=== PATIENT | male | born 1950 | race African-American/Black ===

== ENCOUNTER 2018-08-20 10:38 | Inpatient (IN) | payer OTHER ==
[2018-08-20] MEDS ORDERED: FUROSEMIDE 40 MG/4 ML INJECTABLE VIAL ONE (11:00)
--- NOTE | 2018-08-20 11:03 | PDOC ---
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 He reports never having had this happen before. Reports taking his medications. Per EMS, patient was also hypertensive in the field to 200s/100s. BP 160s/110s s /p Nitro SL x2. On arrival, patient endorses being short of breath. Denies recent fevers/chills, chest pain, abdominal pain, N/V/C/D, or changes in sensation 08/20/18 11:16 <Matteo Jacobo - Last Filed: 08/20/18 19:03> - General Chief Complaint: Respiratory Stated Complaint: DIFFICULTY BREATHING Time Seen by Provider: 08/20/18 10:44 Past History <TereGaileddie Woods - Last Filed: 08/20/18 11:55> - Past Medical History Cardiac Disorders: Yes (pacemaker) COPD: No CHF: No - Surgical History Cardiac Surgery: Yes (ppm, STENT) - Suicide/Smoking/Psychosocial Hx Smoking History: Never smoked Have you smoked in the past 12 months: No Number of Cigarettes Smoked Daily: 10 Information on smoking cessation initiated: No Hx Alcohol Use: No Drug/Substance Use Hx: No Substance Use Type: None <Matteo Jacobo - Last Filed: 08/20/18 19:03> - Past Medical History Allergies/Adverse Reactions: Allergies Allergy/AdvReac Type Severity Reaction Status Date / Time No Known Allergies Allergy Verified 08/20/18 14:02 Home Medications: Ambulatory Orders Apixaban [Eliquis] 5 mg PO BID 08/20/18 Atorvastatin Calcium 40 mg PO DAILY 08/20/18 Famotidine [Pepcid] 20 mg PO DAILY 08/20/18 Lisinopril 20 mg PO DAILY 08/20/18 Metoprolol Succinate 25 mg PO DAILY 08/20/18 Review of Systems - Review of Systems Able to Perform ROS?: Yes Comments:: GENERAL/CONSTITUTIONAL: No fever or chills. No weakness HEAD, EYES, EARS, NOSE AND THROAT: No change in vision. No ear pain or discharge. No sore throat CARDIOVASCULAR: No chest pain RESPIRATORY: Denies cough, hemoptysis GASTROINTESTINAL: No nausea, vomiting, diarrhea or constipation GENITOURINARY: No dysuria, frequency, or change in urination MUSCULOSKELETAL: No joint or muscle swelling or pain. No neck or back pain SKIN: No rash NEUROLOGIC: No headache, vertigo, loss of consciousness, or change in strength/ sensation ENDOCRINE: No increased thirst. No abnormal weight change HEMATOLOGIC/LYMPHATIC: No anemia, easy bleeding, or history of blood clots ALLERGIC/IMMUNOLOGIC: No hives or skin allergy 08/20/18 11:21 Is the patient limited Albanian proficient: No <Matteo Jacobo - Last Filed: 08/20/18 19:03> *Physical Exam - Vital Signs Last Vital Signs Temp Pulse Resp BP Pulse Ox 115 H 33 H 158/102 H 97 08/20/18 10:38 08/20/18 10:38 08/20/18 10:38 08/20/18 11:03 <Gail Carranza - Last Filed: 08/20/18 11:55> - Vital Signs Last Vital Signs Temp Pulse Resp BP Pulse Ox 115 H 33 H 158/102 H 95 08/20/18 10:38 08/20/18 10:38 08/20/18 10:38 08/20/18 10:38 - Physical Exam Comments: GENERAL: Awake, alert, and fully oriented, in mild distress HEAD: No signs of trauma, normocephalic, atraumatic EYES: PERRLA, EOMI, sclera anicteric, conjunctiva clear ENT: Hearing grossly normal, nares patent, oropharynx clear without exudates. Moist mucosa LUNGS: Diffuse b/l rales, on Bi-Pap, initially increased WOB that improved when placed on Bi-Pap HEART: Regular rate and rhythm, normal S1 and S2, no murmurs appreciated, peripheral pulses normal and equal bilaterally ABDOMEN: Soft, nontender, normoactive bowel sounds. No guarding, no rebound EXTREMITIES : Normal inspection, Normal range of motion, no edema. No clubbing or cyanosis NEUROLOGICAL: Cranial nerves II through XII grossly intact. Normal speech, normal gait, no focal sensorimotor deficits SKIN: Warm, Dry, normal turgor, no rashes or lesions noted 08/20/18 11:36 <Matteo Jacobo - Last Filed: 08/20/18 19:03> Moderate Sedation - Procedure Monitoring Vital Signs: Procedure Monitoring Vital Signs Temperature Pulse Rate 115 H 08/20/18 10:38 Respiratory Rate 33 H 08/20/18 10:38 Blood Pressure 158/102 H 08/20/18 10:38 O2 Sat by Pulse Oximetry (%) 97 08/20/18 11:03 <Gail Carranza - Last Filed: 08/20/18 11:55> - Procedure Monitoring Vital Signs: Procedure Monitoring Vital Signs Temperature Pulse Rate 115 H 08/20/18 10:38 Respiratory Rate 33 H 08/20/18 10:38 Blood Pressure 158/102 H 08/20/18 10:38 O2 Sat by Pulse Oximetry (%) 95 08/20/18 10:38 <Matteo Jacobo - Last Filed: 08/20/18 19:03> Procedures - Bedside Ultrasound Bedside Ultrasound: Lung Remarks: B/l lung U/S significant for b-lines diffuse in all lung mcallister No evidence of consolidation Poor cardiac contractility 08/20/18 11:34 <Matteo Jacobo - Last Filed: 08/20/18 19:03> ED Treatment Course - LABORATORY CBC & Chemistry Diagram: 08/20/18 11:40 08/20/18 15:10 <Matteo Jacobo - Last Filed: 08/20/18 19:03> Medical Decision Making - Medical Decision Making The pt is a 67M w/ a history of CHF, CAD, s/p pacer, HLD, GERD who presents for acute onset shortness of breath while walking to [employer] machine shop outside. DDx: CHF v COPD exacerbation, less likely PNA, PNX, PE, hypertensive urgency CXR w/ significant b/l pulmonary vascular congestion POCUS sig for b/l B-lines and poor cardiac contractility CMP, CBC, BNP, Cardiac enzymes ECG Nitro gtt Bi-Pap 12/6, 60% 08/20/18 11:29 Lasix 40mg IV once 08/20/18 11:52 ABG w/ significant improvement -7.4/40/160 -FiO2 reduced to 40% CMP hemolyzed, labs resent 08/20/18 13:27 Trop I 0.10 BNP 4000 LFTs wnl Lytes wnl Cards consult Dispo: Tele admit <Matteo Jacobo - Last Filed: 08/20/18 19:03> *DC/Admit/Observation/Transfer - Discharge Dispostion Decision to Admit order: Yes Decision to Admit order Date/Time: 08/20/18 11:55 <Gail Carranza - Last Filed: 08/20/18 11:55> <Matteo Jacobo - Last Filed: 08/20/18 19:03> Diagnosis at time of Disposition: Pulmonary edema Qualifiers: Chronicity: acute Qualified Code(s): J81.0 - Acute pulmonary edema Congestive heart failure Qualifiers: Heart failure type: diastolic Heart failure chronicity: acute on chronic Qualified Code(s): I50.33 - Acute on chronic diastolic (congestive) heart failure - Discharge Dispostion Condition at time of disposition: Guarded
[2018-08-20] MEDS ORDERED: NITROPRUSSIDE SODIUM 50,000 MCG in SODIUM CHLORIDE 248 ML IVPB SCH ×2 (11:15→11:49)
--- NOTE | 2018-08-20 11:38 | PDOC ---
Attending Attestation - Resident Resident Name: Mtateo Jacobo - ED Attending Attestation I have performed the following: I have examined & evaluated the patient, The case was reviewed & discussed with the resident, I agree w/resident's findings & plan - HPI HPI: 08/20/18 11:33 67 yo M h/o of CAD, CHF s/p defib/pacemaker and PCI x 5 stents, HTN, HLD, on Eliquis presenting with acute onset of shortness of breath and respiratory distress while walking to his [employer] shop. Unable to lie supine. En route with EMS, placed on Cpap, HYPERTENSIVE >200/100s. EMS administered 2 tabs of nitro sublingual 0.4mg with some relief. 08/20/18 11:55 08/20/18 14:28 - Physicial Exam PE: 08/20/18 11:33 General: in severe respiratory distress, tachypneic, on CPAP - unable to speak full sentences. HEENT: NCAT, PERRL, EOMI, clear conjunctiva, anicteric, moist mucus membranes, clear oropharynx, no oral lesions.. Neck: neck supple, FROM +JVD. Resp: severe respiratory distress, tachypneic, +bilateral coarse rales up from bases to upper lobes. Chest: left ppm palpated. CVS: tachycardic, no murmurs, 2+ peripheral pulses throughout, trace peripheral edema Abdomen: soft, nontender. Back: nontender, normal inspection and ROM MSK: No clubbing or cyanosis. normal bulk and tone. Extremities: no calf tenderness Neuro: alert, mentating Skin: warm and well perfused, cap refill <2 sec, normal color - Critical Care Time Total Critical Care Time: 60 (acute respiratory failure, pulmonary edema.) Critical Care Statement: The care of this patient involved high complexity decision making to prevent further life threatening deterioration of the patient 's condition and/or to evaluate & treat vital organ system(s) failure or risk of failure. - Medical Decision Making 08/20/18 11:33 See HPI for details Vital signs reviewed, +tachy/tachypenic. on BiPAP DDx SOB: ACS, angina, PE, CHF exacerbation, acute pulmonary edema, pleural / pericardial effusion. pleurisy, pneumonia. effusion. anemia, electrolyte/ metabolic derangements. Bedside POCUS echo and thoracic exam with +bilateral B lines in all lung mcallister , severely depressed EF <30% on visual inspection. no pericardial effusion, RV< LV. clinically in fluid overload/new onset CHF (no known prior per patient) - does have underlying CAD. Placed bipap 14/5, FiO2 50% - maintain. Hemodynamics allows for NIPPV. Blanchard for strict I/O - however able to urinate into urinal; unable to advance blanchard despite several RN attempts, will leave alone lasix x1 dose and nitro gtt for htn emergency 2/2 pulmonary edema/CHF. labs and lytes_wnl VBG initially abnormal, but recheck on ABG and normal, no acidosis or Co2/ bicarb derangement. wbc ct mildly elevated 12K, but no fever, no s/s infection, so no abx for now and more likely CHF/APE. EKG normal sinus rhythm, no interval abnormalities, narrow QRS, ST and T wave segments and morphology normal. Nonspecific T wave abnormalities, unchanged from prior with TWI in lateral leads. on clinical reeval, much improved, keeping on bipap for afterload and preload reduction. hold fluids. remains on nitro gtt. ICU cs, can go to tele with drip and bipap management. Admit tele for CHF exac/pulmonary edema.. Discussed results and management plan with pt and family member at bedside, agree with impression and plan 08/23/18 20:37 Heart Score/ECG Review - ECG Impressions Normal ECG: No Comment:: 08/20/18 11:39 EKG normal sinus rhythm, no interval abnormalities, narrow QRS, ST and T wave segments and morphology normal. Nonspecific T wave abnormalities, unchanged from prior with TWI in lateral leads. Procedures - Bedside Ultrasound Bedside Ultrasound: Cardiac Remarks: 08/20/18 11:37 POCUS echo and thoracic exam performed, indication includes dyspnea. views obtained (PSLA, A4, SX, b/l lung mcallister). Findings include severely depressed EF <30% (on visual inspection), no pericardial or pleural effusion, primarily B lines in all lung mcallister and diffusely, RV<LV. 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
[2018-08-20] MEDS ORDERED: FUROSEMIDE 40 MG/4 ML INJECTABLE VIAL IVPUSH ONE (11:52)
[2018-08-20] MEDS ORDERED: NITROGLYCERIN 25MG/D5W 250ML 25 MG/250 ML ML IVPB ONE ×3 (11:55→22:19)
[2018-08-20] MEDS ORDERED: NITROGLYCERIN 50MG/D5W 250ML 50 MG/250 ML ML IVPB SCH (12:00)
[2018-08-20 12:02] LABS: BASO % 0.9 % (0-2.0); EOS % 1.5 % (0-4.5); HEMATOCRIT 45.6 % (35.4-49); HEMOGLOBIN 15.3 GM/dL (11.7-16.9); LYMPH % 16.4 % (8-40); MCH 29.3 pg (25.7-33.7); MCHC 33.4 g/dl (32.0-35.9); MEAN CELL VOLUME 87.7 fl (80-96); MEAN PLT VOLUME 10.7 fl (7.5-11.1); MONO % 6.8 % (3.8-10.2); NEUT % 74.4 % (42.8-82.8); PLATELET COUNT 221 K/MM3 (134-434); RDW 13.5 % (11.9-15.9); VENOUS PO2 25.7 mmHg (28-48); WHITE BLOOD COUNT 12.5 K/mm3 (4.0-10.0)
[2018-08-20 12:04] LABS: VENOUS PC02 64.2 mmHg (38-52); VENOUS PH 7.2 (7.32-7.42)
[2018-08-20] MEDS: NITROGLYCERIN 25MG/D5W 250ML 25 MG/250 ML ML IVPB SCH (12:38)
[2018-08-20 12:41] LABS: ARTERIAL BLD GAS O2 SATURATION 98.8 % (90-98.9); ARTERIAL BLOOD GAS PCO2 40.6 mmHg (35-45)
--- NOTE | 2018-08-20 14:13 | CON.CARD ---
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 He reports medication compliance, but adds salt to diet, denies chest pain, near or true syncope, palpitations. Per EMS, patient was also hypertensive in the field to 200s/100s. BP 160s/110s s/p Nitro SL x2, symptoms responding to IV diuresis and NTG gtt. - History Source History Provided By: Patient Limitations to Obtaining History: No Limitations - Alcohol/Substance Use Hx Alcohol Use: No - Smoking History Smoking history: Never smoked Have you smoked in the past 12 months: No Aproximately how many cigarettes per day: 10 Home Medications - Allergies Allergies/Adverse Reactions: Allergies Allergy/AdvReac Type Severity Reaction Status Date / Time No Known Allergies Allergy Verified 08/20/18 14:02 - Home Medications Home Medications: Ambulatory Orders Cephalexin [Keflex] 500 mg PO TID #21 capsule 04/30/14 Review of Systems - Review of Systems Cardiovascular: reports: Shortness of Breath Respiratory: reports: SOB on Exertion Vital Signs: Vital Signs Temperature Pulse Rate 73 08/20/18 12:25 Respiratory Rate 20 08/20/18 12:25 Blood Pressure 168/108 H 08/20/18 12:25 O2 Sat by Pulse Oximetry (%) 99 08/20/18 14:05 Constitutional: Yes: No Distress, Calm Neck: Yes: Supple Respiratory: Yes: Regular, Diminished, On BiPap Gastrointestinal: Yes: Normal Bowel Sounds, Soft Cardiovascular: Yes: Regular Rate and Rhythm JVD: No Carotid Bruit: No Heart Sounds: Yes: S1, S2 Murmur: Yes: Systolic Murmur, Grade 1 Edema: No - Other Data Labs, Other Data: CBC, BMP 08/20/18 11:40 Troponin, BNP 08/20/18 11:40 Troponin I Cancelled B-Natriuretic Peptide Cancelled Troponin, BNP 08/20/18 11:40 Troponin I Cancelled B-Natriuretic Peptide Cancelled NSR @ 77 LVH, LAE Problem List - Problems (1) Coronary artery disease Code(s): I25.10 - ATHSCL HEART DISEASE OF [place] CORONARY ARTERY W/O ANG PCTRS Qualifiers: Coronary Disease-Associated Artery/Lesion type: [place] artery [place] vs. transplanted heart: [place] heart Associated angina: without angina Qualified Code(s): I25.10 - Atherosclerotic heart disease of [place] coronary artery without angina pectoris (2) S/P coronary artery stent placement Code(s): Z95.5 - PRESENCE OF CORONARY ANGIOPLASTY IMPLANT AND GRAFT (3) Hyperlipidemia Code(s): E78.5 - HYPERLIPIDEMIA, UNSPECIFIED Qualifiers: Hyperlipidemia type: pure hypercholesterolemia Qualified Code(s): E78.00 - Pure hypercholesterolemia, unspecified; E78.0 - Pure hypercholesterolemia (4) Hypertensive heart disease with acute diastolic congestive heart failure Code(s): I11.0 - HYPERTENSIVE HEART DISEASE WITH HEART FAILURE; I50.31 - ACUTE DIASTOLIC (CONGESTIVE) HEART FAILURE (5) Congestive heart failure Code(s): I50.9 - HEART FAILURE, UNSPECIFIED Qualifiers: Heart failure type: diastolic Heart failure chronicity: acute on chronic Qualified Code(s): I50.33 - Acute on chronic diastolic (congestive) heart failure (6) Pulmonary edema Code(s): J81.1 - CHRONIC PULMONARY EDEMA Qualifiers: Chronicity: acute Qualified Code(s): J81.0 - Acute pulmonary edema (7) Pacemaker Code(s): Z95.0 - PRESENCE OF CARDIAC PACEMAKER Assessment/Plan A:1. Acute on chronic diastolic heart failure with dietary indiscretion 2. Hypertensive emergency 3. Paroxysmal afib sss s/p PPM 4. Hyperlipidemia 5. CAD s/p PCI (stent), angina pectoris 6. GERD P:1. IV diuresis with monitor diuretic response, renal function and electrolytes 2. Continue Eliquis 5 bid, Toprol XL 25 qd, lisinopril 20 qd, Lipitor 40 qd, Prilosec 20 qd 3. Bipap and O2 as needed to maintain saO2 4. NTG gtt for now 5. F/u echo to assess ventricular and valve fxn 6. Review old records from [facility] cardiology clinic 7. Thank you for consultative opportunity
[2018-08-20 15:34] LABS: URINE APPEARANCE CLEAR; URINE BILIRUBIN NEGATIVE (<2.0 mg/dL); URINE COLOR STRAW; URINE GLUCOSE (UA) NEGATIVE (NEGATIVE); URINE KETONE NEGATIVE (NEGATIVE); URINE LEUK ESTERASE NEGATIVE (NEGATIVE); URINE NITRITE NEGATIVE (NEGATIVE); URINE PROTEIN 1+ (NEGATIVE); URINE UROBILINOGEN NEGATIVE mg/dL (0.2-1.0)
[2018-08-20 15:50] LABS: URINE HYALINE CAST 4 /lpf; URINE MUCUS RARE
[2018-08-20 15:55] LABS: ALBUMIN 3.3 g/dl (3.4-5.0); ALK PHOS 124 U/L (45-117); ANION GAP 5 MMOL/L (8-16); BILIRUBIN,TOTAL 0.6 mg/dL (0.2-1); BLOOD UREA NITROGEN 17 mg/dL (7-18); CALCIUM 8.9 mg/dL (8.5-10.1); CHLORIDE 102 mmol/L (98-107); CO2 31 mmol/L (21-32); CREATININE 1.2 mg/dL (0.55-1.3); GLUCOSE,RANDOM 151 mg/dL (74-106); SGOT/AST 24 U/L (15-37); SGPT/ALT 33 U/L (13-61); SODIUM 139 mmol/L (136-145)
[2018-08-20] MEDS: FUROSEMIDE 40 MG/4 ML INJECTABLE VIAL IVPUSH SCH (17:17)
--- NOTE | 2018-08-20 17:46 | HP ---
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 He reports medication compliance, but adds salt to diet, denies chest pain, near or true syncope, palpitations. Per EMS, patient was also hypertensive in the field to 200s/100s. BP 160s/110s s/p Nitro SL x2, symptoms responding to IV diuresis and NTG gtt. - Past Medical History Cardiovascular: Yes: HTN, Hyperlipdemia Gastrointestinal: Yes: GERD - Smoking History Smoking history: Never smoked Have you smoked in the past 12 months: No Aproximately how many cigarettes per day: 10 - Alcohol/Substance Use Hx Alcohol Use: No Home Medications - Allergies Allergies/Adverse Reactions: Allergies Allergy/AdvReac Type Severity Reaction Status Date / Time No Known Allergies Allergy Verified 08/20/18 14:02 - Home Medications Home Medications: Ambulatory Orders Apixaban [Eliquis] 5 mg PO BID 08/20/18 Atorvastatin Calcium 40 mg PO DAILY 08/20/18 Famotidine [Pepcid] 20 mg PO DAILY 08/20/18 Lisinopril 20 mg PO DAILY 08/20/18 Metoprolol Succinate 25 mg PO DAILY 08/20/18 Metoprolol Succinate [Toprol XL -] 50 mg PO DAILY #30 tab.sr.24h 08/22/18 Physical Examination Vital Signs: Vital Signs Temperature Pulse Rate 62 08/20/18 16:30 Respiratory Rate 23 H 08/20/18 16:30 Blood Pressure 124/80 08/20/18 16:30 O2 Sat by Pulse Oximetry (%) 95 08/20/18 16:30 Constitutional: Yes: No Distress HENT: Yes: Atraumatic Neck: Yes: Supple Cardiovascular: Yes: Regular Rate and Rhythm Respiratory: Yes: CTA Bilaterally Gastrointestinal: Yes: Normal Bowel Sounds Extremities: Yes: WNL Edema: No Neurological: Yes: Alert, Oriented Labs: CBC, BMP 08/20/18 11:40 08/20/18 15:10 Problem List - Problems (1) Congestive heart failure Assessment/Plan: on iv lasix fu troponins cardiology on board Code(s): I50.9 - HEART FAILURE, UNSPECIFIED Qualifiers: Heart failure type: diastolic Heart failure chronicity: acute on chronic Qualified Code(s): I50.33 - Acute on chronic diastolic (congestive) heart failure (2) Coronary artery disease Code(s): I25.10 - ATHSCL HEART DISEASE OF [place] CORONARY ARTERY W/O ANG PCTRS Qualifiers: Coronary Disease-Associated Artery/Lesion type: [place] artery [place] vs. transplanted heart: [place] heart Associated angina: without angina Qualified Code(s): I25.10 - Atherosclerotic heart disease of [place] coronary artery without angina pectoris (3) Hyperlipidemia Assessment/Plan: on meds Code(s): E78.5 - HYPERLIPIDEMIA, UNSPECIFIED Qualifiers: Hyperlipidemia type: pure hypercholesterolemia Qualified Code(s): E78.00 - Pure hypercholesterolemia, unspecified; E78.0 - Pure hypercholesterolemia (4) Hypertensive heart disease with acute diastolic congestive heart failure Assessment/Plan: on meds Code(s): I11.0 - HYPERTENSIVE HEART DISEASE WITH HEART FAILURE; I50.31 - ACUTE DIASTOLIC (CONGESTIVE) HEART FAILURE (5) Pacemaker Code(s): Z95.0 - PRESENCE OF CARDIAC PACEMAKER (6) S/P coronary artery stent placement Code(s): Z95.5 - PRESENCE OF CORONARY ANGIOPLASTY IMPLANT AND GRAFT Assessment/Plan Laboratory Results - last 24 hr 08/20/18 08/20/18 08/20/18 11:40 11:40 11:40 WBC 12.5 H RBC 5.20 Hgb 15.3 Hct 45.6 MCV 87.7 MCH 29.3 MCHC 33.4 RDW 13.5 Plt Count 221 MPV 10.7 Absolute Neuts (auto) 9.3 H Neutrophils % 74.4 Lymphocytes % 16.4 Monocytes % 6.8 Eosinophils % 1.5 Basophils % 0.9 Nucleated RBC % 0 Anticoagulation Therapy Puncture Site ABG pH ABG pCO2 at Pt Temp ABG pO2 at Pt Temp ABG HCO3 ABG O2 Sat (Measured) ABG O2 Content ABG Base Excess Masood Test VBG pH 7.20 L* POC VBG pCO2 64.2 H* POC VBG pO2 25.7 L Mixed VBG HCO3 24.0 O2 Delivery Device Oxygen Flow Rate Vent Mode Vent Rate Mechanical Rate Pressure Support Vent Sodium Cancelled Potassium Cancelled Chloride Cancelled Carbon Dioxide Cancelled Anion Gap Cancelled BUN Cancelled Creatinine Cancelled Creat Clearance w eGFR Cancelled Random Glucose Cancelled Calcium Cancelled Total Bilirubin Cancelled AST Cancelled ALT Cancelled Alkaline Phosphatase Cancelled Creatine Kinase Cancelled Troponin I Cancelled B-Natriuretic Peptide Cancelled Total Protein Cancelled Albumin Cancelled Urine Color Urine Appearance Urine pH Ur Specific [place] Urine Protein Urine Glucose (UA) Urine Ketones Urine Blood Urine Nitrite Urine Bilirubin Urine Urobilinogen Ur Leukocyte Esterase Urine WBC (Auto) Urine RBC (Auto) Hyaline Casts Urine Mucus 08/20/18 08/20/18 08/20/18 11:41 12:31 13:00 WBC RBC Hgb Hct MCV MCH MCHC RDW Plt Count MPV Absolute Neuts (auto) Neutrophils % Lymphocytes % Monocytes % Eosinophils % Basophils % Nucleated RBC % Anticoagulation Therapy No Result Required. Puncture Site Right radial ABG pH 7.40 ABG pCO2 at Pt Temp 40.6 ABG pO2 at Pt Temp 160.0 H* ABG HCO3 25.9 ABG O2 Sat (Measured) 98.8 ABG O2 Content 21.5 ABG Base Excess No Result Required. Masood Test No Result Required. VBG pH POC VBG pCO2 POC VBG pO2 Mixed VBG HCO3 O2 Delivery Device No Result Required. Oxygen Flow Rate No Vent Mode No Result Required. Vent Rate No Result Required. Mechanical Rate No Result Required. Pressure Support Vent No Result Required. Sodium Cancelled Potassium Cancelled Chloride Cancelled Carbon Dioxide Cancelled Anion Gap Cancelled BUN Cancelled Creatinine Cancelled Creat Clearance w eGFR Cancelled Random Glucose Cancelled Calcium Cancelled Total Bilirubin Cancelled AST Cancelled ALT Cancelled Alkaline Phosphatase Cancelled Creatine Kinase Troponin I Cancelled B-Natriuretic Peptide Cancelled Total Protein Cancelled Albumin Cancelled Urine Color Straw Urine Appearance Clear Urine pH 6.0 Ur Specific [place] 1.006 L Urine Protein 1+ H Urine Glucose (UA) Negative Urine Ketones Negative Urine Blood Negative Urine Nitrite Negative Urine Bilirubin Negative Urine Urobilinogen Negative Ur Leukocyte Esterase Negative Urine WBC (Auto) <1 Urine RBC (Auto) <1 Hyaline Casts 4 Urine Mucus Rare 08/20/18 08/20/18 08/20/18 15:10 15:10 15:10 WBC RBC Hgb Hct MCV MCH MCHC RDW Plt Count MPV Absolute Neuts (auto) Neutrophils % Lymphocytes % Monocytes % Eosinophils % Basophils % Nucleated RBC % Anticoagulation Therapy Puncture Site ABG pH ABG pCO2 at Pt Temp ABG pO2 at Pt Temp ABG HCO3 ABG O2 Sat (Measured) ABG O2 Content ABG Base Excess Masood Test VBG pH POC VBG pCO2 POC VBG pO2 Mixed VBG HCO3 O2 Delivery Device Oxygen Flow Rate Vent Mode Vent Rate Mechanical Rate Pressure Support Vent Sodium 139 Potassium 5.0 Chloride 102 Carbon Dioxide 31 Anion Gap 5 L BUN 17 Creatinine 1.2 Creat Clearance w eGFR > 60 Random Glucose 151 H Calcium 8.9 Total Bilirubin 0.6 AST 24 ALT 33 Alkaline Phosphatase 124 H Creatine Kinase Troponin I 0.10 H B-Natriuretic Peptide 3089.6 H Total Protein 7.0 Albumin 3.3 L Urine Color Urine Appearance Urine pH Ur Specific [place] Urine Protein Urine Glucose (UA) Urine Ketones Urine Blood Urine Nitrite Urine Bilirubin Urine Urobilinogen Ur Leukocyte Esterase Urine WBC (Auto) Urine RBC (Auto) Hyaline Casts Urine Mucus Active Medications Generic Name Dose Route Start Last Admin Trade Name Freq PRN Reason Stop Dose Admin Apixaban 5 mg 08/20/18 22:00 Eliquis - PO BID JAX Atorvastatin Calcium 40 mg 08/20/18 22:00 Lipitor - PO HS JAX Furosemide 40 mg 08/20/18 17:00 08/20/18 17:17 Lasix Injection - IVPUSH 40 mg BID@0600,1400 JAX Administration Nitroglycerin/Dextrose 25 mg in 250 mls @ 60 mls/hr 08/20/18 12:00 08/20/18 12:38 Nitroglycerin 25mg/D5w 250ml IVPB 50 mcg/min TITR JAX 30 mls/hr Administration 100 MCG/MIN Lisinopril 20 mg 08/21/18 10:00 Prinivil PO DAILY JAX Metoprolol Succinate 25 mg 08/21/18 10:00 Toprol Xl - PO DAILY JAX
[2018-08-20] MEDS: APIXABAN 5 MG TABLET PO SCH (22:30)
[2018-08-20] MEDS: ATORVASTATIN CA 40 MG TABLET (FP) PO SCH (22:30)
[2018-08-21] MEDS ORDERED: ATORVASTATIN CA 40 MG TABLET (FP) ONE (00:33)
[2018-08-21] MEDS ORDERED: APIXABAN 5 MG TABLET PO ONE (00:33)
[2018-08-21] MEDS: FUROSEMIDE 40 MG/4 ML INJECTABLE VIAL IVPUSH SCH ×2 (06:15→15:38)
[2018-08-21] MEDS ORDERED: NITROGLYCERIN 25MG/D5W 250ML 25 MG/250 ML ML IVPB ONE ×2 (07:10)
[2018-08-21] MEDS ORDERED: FUROSEMIDE 40 MG/4 ML INJECTABLE VIAL ONE (07:10)
[2018-08-21] MEDS ORDERED: metoPROLOL SUCCINATE 25 MG TAB.SR.24H (FP) PO SCH (10:00)
--- NOTE | 2018-08-21 10:07 | PN ---
Progress Note, Physician Chief Complaint: Events noted Feels better this am History of Present Illness: Patient was seen and examined. Awake and alert. Chart was reviewed Denies chest pain, less SOB and no palpitations - Current Medication List Current Medications: Active Medications Apixaban (Eliquis -) 5 mg PO BID [facility] Last Admin: 08/20/18 22:30 Dose: 5 mg Atorvastatin Calcium (Lipitor -) 40 mg PO HS [facility] Last Admin: 08/20/18 22:30 Dose: 40 mg Furosemide (Lasix Injection -) 40 mg IVPUSH BID@0600,1400 [facility] Last Admin: 08/21/18 06:15 Dose: 40 mg Nitroglycerin/Dextrose (Nitroglycerin 25mg/D5w 250ml) 25 mg in 250 mls @ 60 mls /hr IVPB TITR [facility] Last Admin: 08/20/18 12:38 Dose: 50 mcg/min, 30 mls/hr Lisinopril (Prinivil) 20 mg PO DAILY [facility] Metoprolol Succinate (Toprol Xl -) 25 mg PO DAILY [facility]1983 - Objective Vital Signs: Vital Signs Temperature 98 F 08/21/18 07:23 Pulse Rate 63 08/21/18 07:23 Respiratory Rate 15 08/21/18 07:23 Blood Pressure 133/74 08/21/18 07:23 O2 Sat by Pulse Oximetry (%) 100 08/21/18 07:23 Eyes: Yes: PERRL HENT: Yes: Atraumatic Neck: Yes: Supple Cardiovascular: Yes: Regular Rate and Rhythm, Murmur (Soft SM), S1, S2 Respiratory: Yes: Diminished Gastrointestinal: Yes: Normal Bowel Sounds, Soft. No: Tenderness Edema: No Additional Findings/Remarks: - Review of Systems Constitutional: denies: Chills, Fever Cardiovascular: denies: Chest Pain. denies: Palpitations, (+) Shortness of Breath Respiratory: denies: Cough. denies: Hemoptysis, Orthopnea, PND, (+) SOB, SOB on Exertion Gastrointestinal: denies: Abdominal Pain, Constipation, Diarrhea, Melena, Nausea , Rectal Bleeding, Vomiting Neurological: denies: Dizziness, Headache, Seizure, Syncope Labs: CBC, BMP 08/20/18 11:40 08/20/18 15:10 Problem List - Problems (1) Cardiac defibrillator in place Code(s): Z95.810 - PRESENCE OF AUTOMATIC (IMPLANTABLE) CARDIAC DEFIBRILLATOR (2) Congestive heart failure Code(s): I50.9 - HEART FAILURE, UNSPECIFIED Qualifiers: Heart failure type: diastolic Heart failure chronicity: acute on chronic Qualified Code(s): I50.33 - Acute on chronic diastolic (congestive) heart failure (3) Coronary artery disease Code(s): I25.10 - ATHSCL HEART DISEASE OF [place] CORONARY ARTERY W/O ANG PCTRS Qualifiers: Coronary Disease-Associated Artery/Lesion type: [place] artery [place] vs. transplanted heart: [place] heart Associated angina: without angina Qualified Code(s): I25.10 - Atherosclerotic heart disease of [place] coronary artery without angina pectoris (4) Hypertensive heart disease with acute diastolic congestive heart failure Code(s): I11.0 - HYPERTENSIVE HEART DISEASE WITH HEART FAILURE; I50.31 - ACUTE DIASTOLIC (CONGESTIVE) HEART FAILURE (5) S/P coronary artery stent placement Code(s): Z95.5 - PRESENCE OF CORONARY ANGIOPLASTY IMPLANT AND GRAFT (6) Hyperlipidemia Code(s): E78.5 - HYPERLIPIDEMIA, UNSPECIFIED Qualifiers: Hyperlipidemia type: pure hypercholesterolemia Qualified Code(s): E78.00 - Pure hypercholesterolemia, unspecified; E78.0 - Pure hypercholesterolemia Assessment/Plan 1. Acute on chronic systolic and diastolic heart failure with dietary indiscretion 2. Hypertension/HCVD 3. Paroxysmal AF 4. Implantable defibrillator ([employer]) with history of HFrEF 4. Hyperlipidemia 5. CAD s/p PCI (stent), angina pectoris, demand ischemia 6. GERD PLAN: 1. IV diuresis with monitoring renal function and electrolytes 2. Continue Eliquis 5 mg BID, Toprol XL 25 mg QD, Lisinopril 20 mg QD and Lipitor 40 mg QHS 3. Bipap and O2 as needed to maintain saO2 4. Taper NTG gtt 5. Echocardiography to assess LV/RV and valvular function. Depending on result, consider further optimization of cardiac therapy. Other consideration is use of Entresto 6. Review old records from [facility] cardiology clinic Further plans are to follow Fly Bennett MD
[2018-08-21] MEDS: LISINOPRIL 20 MG TABLET (FP) PO SCH (10:43)
[2018-08-21] MEDS: APIXABAN 5 MG TABLET PO SCH ×2 (10:43→22:08)
--- NOTE | 2018-08-21 13:19 | CON.PULM ---
Consult Consult Specialty:: PULMONARY Referred by:: Dr. Rodriguez Reason for Consultation:: shortness of breath - History of Present Illness Chief Complaint: shortness of breath History of Present Illness: 67yo male with h/o HTN, hyperlipidemia, LV systolic dysfunction, paroxysmal atrial fibrillation s/p PPM, GERD who was admitted with worsening shortness of breath. Denies chest pain or palpitations. No cough or wheezing. Denies fevers, chills or sweats. Found to be hypertensive with BP >200/100, started on nitro gtt BP control and lasix with improvement in symptoms. Denies any pulmonary history, is a remote smoker. Worked in an [employer]. - History Source History Provided By: Patient, Medical Record Limitations to Obtaining History: No Limitations - Past Medical History Cardio/Vascular: Yes: HTN, Hyperlipdemia Gastrointestinal: Yes: GERD - Alcohol/Substance Use Hx Alcohol Use: No - Smoking History Smoking history: Never smoked Have you smoked in the past 12 months: No Aproximately how many cigarettes per day: 10 Home Medications - Allergies Allergies/Adverse Reactions: Allergies Allergy/AdvReac Type Severity Reaction Status Date / Time No Known Allergies Allergy Verified 08/20/18 14:02 - Home Medications Home Medications: Ambulatory Orders Apixaban [Eliquis] 5 mg PO BID 08/20/18 Atorvastatin Calcium 40 mg PO DAILY 08/20/18 Famotidine [Pepcid] 20 mg PO DAILY 08/20/18 Lisinopril 20 mg PO DAILY 08/20/18 Metoprolol Succinate 25 mg PO DAILY 08/20/18 Review of Systems - Review of Systems Constitutional: reports: Weakness. denies: Chills, Fever Eyes: denies: Recent Change in Vision HENT: denies: Nasal Congestion, Throat Pain Neck: denies: Stiffness, Tenderness Cardiovascular: reports: Shortness of Breath. denies: Chest Pain, Edema, Palpitations Respiratory: denies: Cough, Hemoptysis, Wheezing Gastrointestinal: denies: Abdominal Pain, Nausea, Vomiting Genitourinary: denies: Dysuria, Hematuria Neurological: denies: Dizziness, Headache Endocrine: denies: Unexplained Weight Loss Physical Exam Vital Sings: Vital Signs Temperature 98.2 F 08/21/18 10:30 Pulse Rate 73 08/21/18 11:46 Respiratory Rate 15 08/21/18 11:46 Blood Pressure 121/63 08/21/18 11:46 O2 Sat by Pulse Oximetry (%) 99 08/21/18 12:12 Constitutional: Yes: Calm Eyes: Yes: Conjunctiva Clear, EOM Intact HENT: Yes: Atraumatic, Normocephalic Neck: Yes: Supple, Trachea Midline Cardiovascular: Yes: Regular Rate and Rhythm Respiratory: Yes: Rales (bibasilar) ...Clubbing: No Gastrointestinal: Yes: Normal Bowel Sounds, Soft. No: Tenderness Edema: No Neurological: Yes: Alert, Oriented Labs: CBC, BMP 08/20/18 11:40 08/20/18 15:10 ABG Results ABG pH 7.40 (7.35-7.45) 08/20/18 12:31 ABG pCO2 at Pt Temp 40.6 mmHg (35-45) 08/20/18 12:31 ABG pO2 at Pt Temp 160.0 mmHg (80-100) H* 08/20/18 12:31 ABG HCO3 25.9 meq/L (22-26) 08/20/18 12:31 ABG O2 Sat (Measured) 98.8 % (90-98.9) 08/20/18 12:31 ABG O2 Content 21.5 % vol (15-22) 08/20/18 12:31 ABG Base Excess No Result Required. 08/20/18 12:31 Imaging - Results Chest X-ray: Report Reviewed, Image Reviewed (pulmonary vascular congestion) Problem List - Problems (1) Acute on chronic combined systolic and diastolic CHF (congestive heart failure) Code(s): I50.43 - ACUTE ON CHRONIC COMBINED SYSTOLIC AND DIASTOLIC HRT FAIL (2) Coronary artery disease Code(s): I25.10 - ATHSCL HEART DISEASE OF [place] CORONARY ARTERY W/O ANG PCTRS Qualifiers: Coronary Disease-Associated Artery/Lesion type: [place] artery [place] vs. transplanted heart: [place] heart Associated angina: without angina Qualified Code(s): I25.10 - Atherosclerotic heart disease of [place] coronary artery without angina pectoris (3) Hyperlipidemia Code(s): E78.5 - HYPERLIPIDEMIA, UNSPECIFIED Qualifiers: Hyperlipidemia type: pure hypercholesterolemia Qualified Code(s): E78.00 - Pure hypercholesterolemia, unspecified; E78.0 - Pure hypercholesterolemia Assessment/Plan Hypertensive Urgency Acute on Chronic Systolic/Diastolic Heart Failure Paroxysmal Atrial Fibrilllation CAD +Troponins likely Demand Ischemia Hyperlipidemia - continue lasix - monitor urine output, creatinine - taper nitro gtt - beta candida, CARMELA-I - O2 to keep SpO2 >90% - echocardiogram - rate control - continue anticoagulation Thank you for this consult Nate Chong MD
[2018-08-21 15:21] VITALS: BMI 25.9
--- NOTE | 2018-08-21 16:07 | PN ---
Progress Note, Physician - Current Medication List Current Medications: Active Medications Apixaban (Eliquis -) 5 mg PO BID [facility] Last Admin: 08/21/18 10:43 Dose: 5 mg Atorvastatin Calcium (Lipitor -) 40 mg PO HS [facility] Last Admin: 08/20/18 22:30 Dose: 40 mg Furosemide (Lasix Injection -) 40 mg IVPUSH BID@0600,1400 [facility] Last Admin: 08/21/18 15:38 Dose: 40 mg Nitroglycerin/Dextrose (Nitroglycerin 25mg/D5w 250ml) 25 mg in 250 mls @ 60 mls /hr IVPB TITR [facility] Last Admin: 08/20/18 12:38 Dose: 50 mcg/min, 30 mls/hr Lisinopril (Prinivil) 20 mg PO DAILY [facility] Last Admin: 08/21/18 10:43 Dose: 20 mg Metoprolol Succinate (Toprol Xl -) 25 mg PO DAILY [facility] Last Admin: 08/21/18 10:43 Dose: 25 mg - Objective Vital Signs: Vital Signs Temperature 98.6 F 08/21/18 15:26 Pulse Rate 75 08/21/18 15:26 Respiratory Rate 20 08/21/18 15:26 Blood Pressure 121/76 08/21/18 15:26 O2 Sat by Pulse Oximetry (%) 100 08/21/18 15:33 Constitutional: Yes: No Distress HENT: Yes: Atraumatic Neck: Yes: Supple Cardiovascular: Yes: Regular Rate and Rhythm Respiratory: Yes: Rales, Rhonchi Gastrointestinal: Yes: Normal Bowel Sounds Extremities: Yes: WNL Edema: No Peripheral Pulses WNL: Yes Neurological: Yes: Alert, Oriented Labs: CBC, BMP 08/20/18 11:40 08/20/18 15:10 Problem List - Problems (1) Congestive heart failure Assessment/Plan: on iv lasix fu troponins cardiology on board Code(s): I50.9 - HEART FAILURE, UNSPECIFIED Qualifiers: Heart failure type: diastolic Heart failure chronicity: acute on chronic Qualified Code(s): I50.33 - Acute on chronic diastolic (congestive) heart failure (2) Coronary artery disease Code(s): I25.10 - ATHSCL HEART DISEASE OF [place] CORONARY ARTERY W/O ANG PCTRS Qualifiers: Coronary Disease-Associated Artery/Lesion type: [place] artery [place] vs. transplanted heart: [place] heart Associated angina: without angina Qualified Code(s): I25.10 - Atherosclerotic heart disease of [place] coronary artery without angina pectoris (3) Hyperlipidemia Assessment/Plan: on meds Code(s): E78.5 - HYPERLIPIDEMIA, UNSPECIFIED Qualifiers: Hyperlipidemia type: pure hypercholesterolemia Qualified Code(s): E78.00 - Pure hypercholesterolemia, unspecified; E78.0 - Pure hypercholesterolemia (4) Hypertensive heart disease with acute diastolic congestive heart failure Assessment/Plan: on meds Code(s): I11.0 - HYPERTENSIVE HEART DISEASE WITH HEART FAILURE; I50.31 - ACUTE DIASTOLIC (CONGESTIVE) HEART FAILURE (5) Pacemaker Code(s): Z95.0 - PRESENCE OF CARDIAC PACEMAKER (6) S/P coronary artery stent placement Code(s): Z95.5 - PRESENCE OF CORONARY ANGIOPLASTY IMPLANT AND GRAFT
[2018-08-21] MEDS: NITROGLYCERIN 25MG/D5W 250ML 25 MG/250 ML ML IVPB SCH (16:47)
--- NOTE | 2018-08-21 16:48 | ECHO ---
Name: SUHA ALANIZ Exam:Adult Echocardiogram Study Date: 08/21/2018 11:04 AM Age: 67 yrs Reason For Study: CHF Height: 60 in Weight: 165 lb BSA: 1.7 m2 MMode/2D Measurements & Calculations IVSd: 1.3 cm Ao root diam: 2.9 cm LVIDd: 4.7 cm LA dimension: 3.5 cm LVIDs: 3.2 cm LVPWd: 1.2 cm EDV(Teich): 100.3 ml ESV(Teich): 42.5 ml Doppler Measurements & Calculations MV E max sin: 76.6 cm/sec TR max sin: 262.7 cm/sec MV A max sin: 97.5 cm/sec TR max P.6 mmHg MV E/A: 0.79 RVSP(TR): 32.6 mmHg MV dec time: 0.14 sec Med Peak E' Sin: 5.8 cm/sec RAP systole: 5.0 mmHg Med E/e': 13.3 Lat Peak E' Sin: 8.4 cm/sec Lat E/e': 9.1 PI Vmax: 84.2 cm/sec Left Ventricle Mild LVH with mildly decreased global LV function. Ejection Fraction = 45%. Abnormal diastolic compla jeovanny with normal LA pressure. Right Ventricle Normal RV size and function with pacer wire seen in the RV. Atria Normal left and right atrial size and function. Mitral Valve The mitral valve leaflets appear normal. There is no evidence of stenosis, fluttering, or prolapse. Tricuspid Valve The tricuspid valve is normal. There is mild tricuspid regurgitation. Aortic Valve The aortic valve is normal in structure and function. Pulmonic Valve The pulmonic valve is not well seen, but is grossly normal. Great Vessels The aortic root is normal size. Interpretation Summary Mild LVH with mildly decreased global LV function. Abnormal diastolic complaince with normal LA pressure. Normal RV size and function with pacer wire seen in the RV. Normal left and right atrial size and function. The mitral valve leaflets appear normal. There is no evidence of stenosis, fluttering, or prolapse. The tricuspid valve is normal. There is mild tricuspid regurgitation. The aortic valve is normal in structure and function. The pulmonic valve is not well seen, but is grossly normal. The aortic root is normal size. MD Kemar Wong 08/21/2018 04:48 PM
[2018-08-21] MEDS: ATORVASTATIN CA 40 MG TABLET (FP) PO SCH (22:08)
[2018-08-22] MEDS: FUROSEMIDE 40 MG/4 ML INJECTABLE VIAL IVPUSH SCH (06:15)
[2018-08-22 06:19] LABS: BASO % 0.9 % (0-2.0); EOS % 3.1 % (0-4.5); HEMATOCRIT 40.4 % (35.4-49); HEMOGLOBIN 13.6 GM/dL (11.7-16.9); LYMPH % 31.6 % (8-40); MCH 29.6 pg (25.7-33.7); MCHC 33.8 g/dl (32.0-35.9); MEAN CELL VOLUME 87.7 fl (80-96); MONO % 10.9 % (3.8-10.2); NEUT % 53.5 % (42.8-82.8); PLATELET COUNT 157 K/MM3 (134-434); RDW 13.5 % (11.9-15.9)
[2018-08-22 06:37] LABS: ALK PHOS 103 U/L (45-117); ANION GAP 5 MMOL/L (8-16); BILIRUBIN,TOTAL 0.8 mg/dL (0.2-1); BLOOD UREA NITROGEN 26 mg/dL (7-18); CALCIUM 8.7 mg/dL (8.5-10.1); CHLORIDE 103 mmol/L (98-107); CO2 33 mmol/L (21-32); CREATININE 1.2 mg/dL (0.55-1.3); GLUCOSE,RANDOM 116 mg/dL (74-106); POTASSIUM 3.8 mmol/L (3.5-5.1); SGOT/AST 21 U/L (15-37); SGPT/ALT 25 U/L (13-61); SODIUM 140 mmol/L (136-145); TOT PROT 6.4 g/dl (6.4-8.2)
--- NOTE | 2018-08-22 09:18 | PN ---
Progress Note, Physician History of Present Illness: Dyspnea on exertion and orthopnea has resolved, denies chest pain, palpitations. - Current Medication List Current Medications: Active Medications Apixaban (Eliquis -) 5 mg PO BID [facility] Last Admin: 08/21/18 22:08 Dose: 5 mg Atorvastatin Calcium (Lipitor -) 40 mg PO HS [facility] Last Admin: 08/21/18 22:08 Dose: 40 mg Furosemide (Lasix Injection -) 40 mg IVPUSH BID@0600,1400 [facility] Last Admin: 08/22/18 06:15 Dose: 40 mg Nitroglycerin/Dextrose (Nitroglycerin 25mg/D5w 250ml) 25 mg in 250 mls @ 60 mls /hr IVPB TITR [facility] Last Titration: 08/21/18 17:40 Dose: 0 mcg/min, 0 mls/hr Lisinopril (Prinivil) 20 mg PO DAILY [facility] Last Admin: 08/21/18 10:43 Dose: 20 mg Metoprolol Succinate (Toprol Xl -) 25 mg PO DAILY [facility] Last Admin: 08/21/18 10:43 Dose: 25 mg - Objective Vital Signs: Vital Signs Temperature 98 F 08/22/18 06:00 Pulse Rate 73 08/22/18 06:00 Respiratory Rate 18 08/22/18 06:00 Blood Pressure 134/84 08/22/18 06:00 O2 Sat by Pulse Oximetry (%) 100 08/22/18 00:00 Constitutional: Yes: No Distress, Calm Neck: Yes: Supple Cardiovascular: Yes: Regular Rate and Rhythm, Murmur (1/6 SM) Respiratory: Yes: Regular, CTA Bilaterally Gastrointestinal: Yes: Normal Bowel Sounds, Soft Edema: No Labs: CBC, BMP 08/22/18 05:30 08/22/18 05:30 - ....Imaging EKG: Report Reviewed (Tele: [facility]) Problem List - Problems (1) Coronary artery disease Code(s): I25.10 - ATHSCL HEART DISEASE OF [place] CORONARY ARTERY W/O ANG PCTRS Qualifiers: Coronary Disease-Associated Artery/Lesion type: [place] artery [place] vs. transplanted heart: [place] heart Associated angina: without angina Qualified Code(s): I25.10 - Atherosclerotic heart disease of [place] coronary artery without angina pectoris (2) S/P coronary artery stent placement Code(s): Z95.5 - PRESENCE OF CORONARY ANGIOPLASTY IMPLANT AND GRAFT (3) Hyperlipidemia Code(s): E78.5 - HYPERLIPIDEMIA, UNSPECIFIED Qualifiers: Hyperlipidemia type: pure hypercholesterolemia Qualified Code(s): E78.00 - Pure hypercholesterolemia, unspecified; E78.0 - Pure hypercholesterolemia (4) Hypertensive heart disease with acute diastolic congestive heart failure Code(s): I11.0 - HYPERTENSIVE HEART DISEASE WITH HEART FAILURE; I50.31 - ACUTE DIASTOLIC (CONGESTIVE) HEART FAILURE (5) Congestive heart failure Code(s): I50.9 - HEART FAILURE, UNSPECIFIED Qualifiers: Heart failure type: diastolic Heart failure chronicity: acute on chronic Qualified Code(s): I50.33 - Acute on chronic diastolic (congestive) heart failure (6) Pulmonary edema Code(s): J81.1 - CHRONIC PULMONARY EDEMA Qualifiers: Chronicity: acute Qualified Code(s): J81.0 - Acute pulmonary edema (7) Pacemaker Code(s): Z95.0 - PRESENCE OF CARDIAC PACEMAKER Assessment/Plan 08/21/2018 Echo: Mild LVH with mild decreased LV fxn LVEF 45%, abnl LV compliance, normal RV size and fxn, normal atrial sizes, mild TR 1. Acute on chronic systolic and diastolic heart failure with dietary indiscretion resolving 2. Hypertension/HCVD 3. Paroxysmal AF 4. Implantable defibrillator ([employer]) with history of HFrEF 4. Hyperlipidemia 5. CAD s/p PCI (stent), angina pectoris, demand ischemia 6. GERD PLAN: 1. Change to oral diuresis with monitoring renal function and electrolytes 2. Continue Eliquis 5 mg BID, increase Toprol XL 50 mg QD, Lisinopril 20 mg QD and Lipitor 40 mg QHS 3. Tapered off NTG gtt 4. May be d/[place]olis home with f/u [facility] cardiology clinic
[2018-08-22] MEDS: APIXABAN 5 MG TABLET PO SCH (09:39)
[2018-08-22] MEDS: LISINOPRIL 20 MG TABLET (FP) PO SCH (09:39)
[2018-08-22] MEDS ORDERED: FUROSEMIDE 20 MG TABLET (FP) PO SCH (10:00)
--- NOTE | 2018-08-22 10:36 | PN ---
Progress Note, Physician History of Present Illness: PULMONARY ALERT,FEELING BETTER,SOB IMPROVED,-CP - Current Medication List Current Medications: Active Medications Apixaban (Eliquis -) 5 mg PO BID [facility] Last Admin: 08/22/18 09:39 Dose: 5 mg Atorvastatin Calcium (Lipitor -) 40 mg PO HS [facility] Last Admin: 08/21/18 22:08 Dose: 40 mg Furosemide (Lasix -) 20 mg PO DAILY [facility] Last Admin: 08/22/18 09:38 Dose: Not Given Lisinopril (Prinivil) 20 mg PO DAILY [facility] Last Admin: 08/22/18 09:39 Dose: 20 mg Metoprolol Succinate (Toprol Xl -) 50 mg PO DAILY [facility] Last Admin: 08/22/18 09:43 Dose: 50 mg - Objective Vital Signs: Vital Signs Temperature 98.1 F 08/22/18 10:00 Pulse Rate 71 08/22/18 10:00 Respiratory Rate 20 08/22/18 10:00 Blood Pressure 128/71 08/22/18 10:00 O2 Sat by Pulse Oximetry (%) 100 08/22/18 00:00 Constitutional: Yes: Well Nourished, Calm Eyes: Yes: WNL HENT: Yes: WNL Neck: Yes: WNL Cardiovascular: Yes: Pulse Irregular, S1, S2 Respiratory: Yes: Rales (FEW BIBASILAR RALES) Gastrointestinal: Yes: Normal Bowel Sounds, Soft Extremities: Yes: WNL Edema: No Labs: CBC, BMP 08/22/18 05:30 08/22/18 05:30 Assessment/Plan Problem List - Problems (1) Acute on chronic combined systolic and diastolic CHF (congestive heart failure) Code(s): I50.43 - ACUTE ON CHRONIC COMBINED SYSTOLIC AND DIASTOLIC HRT FAIL (2) Coronary artery disease Code(s): I25.10 - ATHSCL HEART DISEASE OF [place] CORONARY ARTERY W/O ANG PCTRS Qualifiers: Coronary Disease-Associated Artery/Lesion type: [place] artery [place] vs. transplanted heart: [place] heart Associated angina: without angina Qualified Code(s): I25.10 - Atherosclerotic heart disease of [place] coronary artery without angina pectoris (3) Hyperlipidemia Code(s): E78.5 - HYPERLIPIDEMIA, UNSPECIFIED Qualifiers: Hyperlipidemia type: pure hypercholesterolemia Qualified Code(s): E78.00 - Pure hypercholesterolemia, unspecified; E78.0 - Pure hypercholesterolemia Assessment/Plan Hypertensive Urgency IMPROVED Acute on Chronic Systolic/Diastolic Heart Failure IMPROVED Paroxysmal Atrial Fibrilllation CAD +Troponins likely Demand Ischemia Hyperlipidemia - lasix - monitor urine output, creatinine - beta candida, CARMELA-I - O2 to keep SpO2 >90% - rate control - anticoagulation DR MALDONADO
--- NOTE | 2018-08-22 11:55 | EKG ---
Test Reason : Blood Pressure : / mmHG Vent. 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
--- NOTE | 2018-08-22 14:17 | DS ---
Physical Examination Vital Signs: Vital Signs Temperature 98.1 F 08/22/18 10:00 Pulse Rate 71 08/22/18 10:00 Respiratory Rate 20 08/22/18 10:00 Blood Pressure 128/71 08/22/18 10:00 O2 Sat by Pulse Oximetry (%) 99 08/22/18 08:00 HENT: Yes: Atraumatic Neck: Yes: Supple Cardiovascular: Yes: Regular Rate and Rhythm Respiratory: Yes: CTA Bilaterally Gastrointestinal: Yes: Normal Bowel Sounds Extremities: Yes: WNL Edema: No Neurological: Yes: Alert, Oriented Labs: CBC, BMP 08/22/18 05:30 08/22/18 05:30 Discharge Summary Reason For Visit: ACUTE CHF/HYPERLIPIDEMIA/GASTROESOPHAGEAL Current Active Problems Acute on chronic combined systolic and diastolic CHF (congestive heart failure) (Acute) Cardiac defibrillator in place (Acute) Congestive heart failure (Acute) Coronary artery disease (Acute) Hyperlipidemia (Acute) Hypertensive heart disease with acute diastolic congestive heart failure (Acute) Pacemaker (Acute) Pulmonary edema (Acute) S/P coronary artery stent placement (Acute) Condition: Guarded - Instructions Disposition: HOME - Home Medications Comprehensive Discharge Medication List: Ambulatory Orders Apixaban [Eliquis] 5 mg PO BID 08/20/18 Atorvastatin Calcium 40 mg PO DAILY 08/20/18 Famotidine [Pepcid] 20 mg PO DAILY 08/20/18 Lisinopril 20 mg PO DAILY 08/20/18 Metoprolol Succinate 25 mg PO DAILY 08/20/18 Metoprolol Succinate [Toprol XL -] 50 mg PO DAILY #30 tab.sr.24h 08/22/18 cleared by cardiology to be dc
[2018-08-22 14:39] VITALS: BP 120/80; PULSE 78; TEMP 98.4
[2018-08-23] MEDS ORDERED: FUROSEMIDE 20 MG TABLET (FP) PO SCH (10:00)
== END 2018-08-22 15:51 | disposition home or self-care (01) | DRG 291 ==
LOC: JER 10:38 → JERBED 11:37 → UNDOADMIN 11:37 → INTOOBSV 11:37 → J4W 08-21 14:24 → OBSVTOIN 08-21 14:40
PROVIDERS: ADMIT Internal Medicine; ATTEND Internal Medicine
DX: I11.0 Hypertensive heart disease with heart failure (principal); J81.0 Acute pulmonary edema; J96.01 Acute respiratory failure with hypoxia; I24.8 Other forms of acute ischemic heart disease; I50.33 Acute on chronic diastolic (congestive) heart failure; I10 Essential (primary) hypertension; K21.9 Gastro-esophageal reflux disease without esophagitis; E78.5 Hyperlipidemia, unspecified; I48.0 Paroxysmal atrial fibrillation; I16.0 Hypertensive urgency; I25.119 Atherosclerotic heart disease of native coronary artery with unspecified angina pectoris; Z95.0 Presence of cardiac pacemaker; Z95.5 Presence of coronary angioplasty implant and graft
CPT/HCPCS: 36415; 36600; 71045-TC-FY; 80053; 81003; 81015; 82550; 82803; 83880; 84484; 85025; 93005; 93010; 93306-TC; 94660; 99285-25; G0378